=== PATIENT | male | born 1975 | race African-American/Black ===

== ENCOUNTER → 2017-04-26 | Outpatient (CLI) | payer OTHER ==
--- NOTE | 2017-04-26 10:06 | RAD ---
Right knee radiograph 04/26/2017 at 0945 hours Indication: Right knee pain for 8 months after moving fracture. Comparison: None available Technique: 2 views of the right knee are provided. Findings: There is no acute fracture or dislocation. No knee joint effusion. Bone mineralization is within normal limits. Joint spaces are maintained. Impression: No acute fracture or dislocation.
--- NOTE | 2017-04-26 10:07 | RAD ---
Cervical spine radiograph 04/26/2017 at 0942 hours Indication: Neck pain for many years. Comparison: None available Technique: AP and lateral views of the cervical spine are provided. Findings: Cervical spine is visualized from a cervical junction through the cervicothoracic junction. Vertebral body height and alignment are maintained. No significant facet or uncovertebral joint arthropathy. No significant osseous spinal canal stenosis. No acute fracture is identified. Paraspinal soft tissues including the prevertebral soft tissues are normal in appearance. Impression: No acute fracture or malalignment.
== END | disposition home or self-care (01) ==
LOC: RAD 09:01
PROVIDERS: ATTEND Surgery
DX: M54.2 Cervicalgia (principal); M25.561 Pain in right knee
CPT/HCPCS: 72040; 73560